=== PATIENT | female | born 1985 | race Caucasian/White ===

== ENCOUNTER 2022-04-30 08:12 | Day surgery (SDC) | payer BC ==
[~2022-04-30 08:12] MED LIST: Midazolam 1 MG/ML 2 ML SDV ONE; Propofol 200 MG/20 ML SDV ONE; fentaNYL 50 MCG/ML SDV ONE
[2022-04-30] MEDS ORDERED: Lactated Ringers 1,000 ML IV SCH (10:00)
== END 2022-04-30 11:26 | disposition home or self-care (01) ==
LOC: JP.SDS 08:12
PROVIDERS: ATTEND Student in an Organized Health Care Education/Training Program
DX: K20.0 Eosinophilic esophagitis (principal); E66.9 Obesity, unspecified; K21.9 Gastro-esophageal reflux disease without esophagitis; K86.89 Other specified diseases of pancreas
CPT/HCPCS: 43239; 87081; J2250; J2704; J3010; J7120; 88305

== ENCOUNTER 2022-08-13 07:10 | Inpatient (IN) | payer BC ==
[~2022-08-13 07:10] MED LIST changes: +Bupivacaine 0.5%/EPINEPHrine 1:200,000 50 ML MDV ONE; -Midazolam 1 MG/ML 2 ML SDV ONE; -Propofol 200 MG/20 ML SDV ONE; -fentaNYL 50 MCG/ML SDV ONE
[2022-08-13] MEDS ORDERED: Glycopyrrolate 0.2 MG/ML 5 ML MDV ONE (07:55)
[2022-08-13] MEDS ORDERED: Rocuronium 50 MG/5 ML Vial ONE ×2 (07:55→11:53)
[2022-08-13] MEDS ORDERED: Dexamethasone 4 MG/ML SDV ONE (07:55)
[2022-08-13] MEDS ORDERED: Neostigmine Methylsulfate 1 MG/ML 5 ML Syringe ONE (07:55)
[2022-08-13] MEDS ORDERED: Ondansetron 4 MG/2 ML SDV ONE (07:55)
[2022-08-13] MEDS ORDERED: Propofol 200 MG/20 ML SDV ONE (07:55)
[2022-08-13] MEDS ORDERED: fentaNYL 250 MCG/5 ML SDV ONE ×2 (07:55→11:46)
[2022-08-13] MEDS ORDERED: Succinylcholine 200 MG/10 ML MDV ONE (07:55)
[2022-08-13] MEDS ORDERED: Enoxaparin 40 MG/0.4 ML Syringe SUBCUT ONE (08:00)
[2022-08-13] MEDS ORDERED: Scopolamine 1.5 MG Transdermal Patch TOP SCH (08:00)
[2022-08-13] MEDS ORDERED: Lactated Ringers 1,000 ML IV SCH (08:00)
[2022-08-13] MEDS ORDERED: Celecoxib 200 MG Cap PO ONE (08:00)
[2022-08-13] MEDS ORDERED: Acetaminophen 500 MG Tab PO ONE (08:00)
[2022-08-13] MEDS ORDERED: metroNIDAZOLE/Normal Saline 500 MG in Premix Bag 1 BAG IV ONE (08:30)
[2022-08-13] MEDS ORDERED: cefTRIAXone 2 GM in Sodium Chloride 0.9% 50 ML IV ONE (08:30)
[2022-08-13] MEDS ORDERED: Ketamine 19 MG in Sodium Chloride 0.9% 19.81 ML IV SCH (09:15)
[2022-08-13] MEDS ORDERED: Ketamine 500 MG/5 ML MDV IV SCH (09:15)
[2022-08-13] MEDS ORDERED: Lactated Ringers 1,000 ML ONE (11:42)
[2022-08-13] MEDS ORDERED: Ondansetron 4 MG/2 ML SDV IVPUSH PRN (13:13)
[2022-08-13] MEDS ORDERED: Pantoprazole 40 MG Vial IVPUSH PRN (13:13)
[2022-08-13] MEDS: Acetaminophen 1,000 MG in Premix Bag 1 BAG IV PRN ×2 (16:12→22:49)
[2022-08-13] MEDS: SCOPOLAMINE PATCH CHECK TOP SCH (16:17)
[2022-08-13] MEDS: Dextrose 5%-Lactated Ringers 1,000 ML IV SCH (19:11)
[2022-08-14] MEDS: Dextrose 5%-Lactated Ringers 1,000 ML IV SCH (00:36)
[2022-08-14 05:00] LABS: ESTIMATED GFR 84 mL/min (>60)
[2022-08-14] MEDS ORDERED: Meclizine 25 MG Tab PO PRN (07:15)
[2022-08-14] MEDS ORDERED: Enoxaparin 40 MG/0.4 ML Syringe SUBCUT SCH (08:00)
[2022-08-14] MEDS ORDERED: Cetirizine 10 MG Tab PO SCH (09:00)
[2022-08-14] MEDS ORDERED: Escitalopram 20 MG Tab PO SCH (09:00)
[2022-08-14] MEDS: SCOPOLAMINE PATCH CHECK TOP SCH (09:02)
[2022-08-14] MEDS: Acetaminophen 1,000 MG in Premix Bag 1 BAG IV PRN (11:01)
[2022-08-16] MEDS ORDERED: Scopolamine 1.5 MG Transdermal Patch TRDERM PRN (07:00)
== END 2022-08-14 15:25 | disposition home or self-care (01) | DRG 403 ==
LOC: JP.SDSSCHI 07:10 → JP.MS 14:12
PROVIDERS: ADMIT Student in an Organized Health Care Education/Training Program; ATTEND Student in an Organized Health Care Education/Training Program
PROC: 0DB64Z3 Excision of Stomach, Percutaneous Endoscopic Approach, Vertical (ICD-10-PCS; principal; 2022-08-13)
PROC: 8E0W4CZ Robotic Assisted Procedure of Trunk Region, Percutaneous Endoscopic Approach (ICD-10-PCS; 2022-08-13)
PROC: 0DJ08ZZ Inspection of Upper Intestinal Tract, Via Natural or Artificial Opening Endoscopic (ICD-10-PCS; 2022-08-13)
DX: E66.01 Morbid (severe) obesity due to excess calories (principal); Z68.39 Body mass index [BMI] 39.0-39.9, adult; F41.9 Anxiety disorder, unspecified; F32.A Depression, unspecified; E03.9 Hypothyroidism, unspecified; Z87.891 Personal history of nicotine dependence; Z79.899 Other long term (current) drug therapy; Z88.8 Allergy status to other drugs, medicaments and biological substances
CPT/HCPCS: 36415; 80053; 82947; 83735; 84100; 84703; 85027; 86850; 86900; 86901; A9270-GY; J0131; J0171; J0330; J0696; J1100; J1650; J2405; J2704; J2710; J2795; J3010; J3490; J7120; J7121